=== PATIENT | female | born 1955 | race Caucasian/White ===

== ENCOUNTER → 2016-09-17 | Outpatient (CLI) | payer OTHER ==
[~2016-09-17] MED LIST: BIOFLEX TABLET1 EACH PO; COLACE-DPS100 MG PO; FARXIGA5 MG PO; GLUCOPHAGE1000 MG PO; JANUVIA50 MG PO; MAALOX DPS30 ML PO; MULTIPLE VITAM1 EACH PO; PHENERGAN W/COD30 ML PO; SURFAK DPS240 MG PO; SYNTHROID DP0.075 MG PO; TYLENOL DPS325 MG PO; VASOTEC DPS5 MG PO; ZOCOR DPS10 MG PO
== END | disposition home or self-care (01) ==
LOC: RAD.S 15:46
DX: Z12.31 Encounter for screening mammogram for malignant neoplasm of breast (principal)